=== PATIENT | female | born 1960 | race Caucasian/White ===

== ENCOUNTER → 2017-04-03 | Outpatient (CLI) | payer BC ==
[2017-04-03 17:50] LABS: Blood Urea Nitrogen 20 mg/dL (7-17); Non-African American GFR(MDRD) >60 (>60 ml/min/1.73 sqM)
--- NOTE | 2017-04-03 19:19 | CT ---
EXAMINATION TYPE: CT abdomen pelvis w con DATE OF EXAM: 04/03/2017 COMPARISON: NONE HISTORY: Pelvic pain for [address] DLP: 1469.5 mGycm Automated exposure control for dose reduction was used. TECHNIQUE: Helical acquisition of images was performed from the lung bases through the pelvis. CONTRAST: Performed with Oral Contrast and with IV Contrast, patient injected with 100 mL of Omnipaque 300. FINDINGS: Lung bases are clear. There is no pleural effusion. Heart size is normal. The liver spleen pancreas appear normal. Bile ducts are not dilated. There are clips from cholecystec fabricio. There is no adrenal mass. Kidneys show satisfactory contrast opacification. There is no hydronephrosi s. There is no retroperitoneal adenopathy. Abdominal aorta is atheromatous. There are sigmoid diverti cula. There is no evidence of diverticulitis. I see no intestinal wall thickening. There are no dilat ed loops. Appendix is not seen. There is mild athetoid calcification in the abdominal aorta. I see no focal bone destruction. There is narrowing at L4-5 and L5-S1 disc spaces with vacuum disc and spur f ormation. There is no evidence of focal bone destruction. Bladder distends smoothly. There is no sign of a pelvic mass. There is no sign of a hernia. IMPRESSION: MILD SIGMOID DIVERTICULOSIS. NO SIGN OF ACUTE ABDOMEN AND PELVIS.
== END | disposition home or self-care (01) ==
LOC: RADCTMAIN 17:17
PROVIDERS: ATTEND Internal Medicine
DX: K57.30 Diverticulosis of large intestine without perforation or abscess without bleeding (principal)
CPT/HCPCS: 82565; 84520; 74177; 36415; Q9967

== ENCOUNTER → 2017-09-01 | Outpatient (CLI) | payer BC ==
--- NOTE | 2017-09-02 09:45 | MM ---
Reason for exam: screening (asymptomatic). Last mammogram was performed 1 year and 2 months ago. History: Patient is postmenopausal. Family history of breast cancer in maternal aunt at age 70. Benign US biopsy breast VAD LT of the left breast, June 27, 2015. Benign left mammotome panel of the left breast, April 25, 2011. Physical Findings: A clinical breast exam by your physician is recommended on an annual basis and results should be correlated with mammographic findings. MG Screening Mammo w CAD Bilateral CC and MLO view(s) were taken. Prior study comparison: June 27, 2016, bilateral MG screening mammo w CAD. May 25, 2015, bilateral MG screening mammo w CAD. There are scattered fibroglandular densities. Finding: There is a 8 mm equal density (isodense), obscured mass in the upper outer quadrant of the left breast. Benign calcifications. Previous mammotome biopsy in the left breast. There is a chronic nodularity bilaterally. ASSESSMENT: Incomplete: need additional imaging evaluation, BI-RAD 0 RECOMMENDATION: Special view mammogram of the left breast. If lesion persists on supplemental views, image directed ultrasound is recommended. [facility] will attempt to contact patient to return for supplemental views and ultrasound if indicated.
== END | disposition home or self-care (01) ==
LOC: RADMAMWWP 13:09
PROVIDERS: ATTEND Internal Medicine
DX: Z12.31 Encounter for screening mammogram for malignant neoplasm of breast (principal); R92.8 Other abnormal and inconclusive findings on diagnostic imaging of breast
CPT/HCPCS: 77067

== ENCOUNTER → 2017-09-03 | Outpatient (CLI) | payer BC ==
--- NOTE | 2017-09-04 07:00 | MM ---
Reason for exam: additional evaluation requested from abnormal screening. Last mammogram was performed less than 1 month ago. History: Patient is postmenopausal. Family history of breast cancer in maternal aunt at age 70. Benign US biopsy breast VAD LT of the left breast, June 27, 2015. Benign left mammotome panel of the left breast, April 25, 2011. Physical Findings: Nurse did not find any significant physical abnormalities on exam. MG Work Up Mamm w CAD LT Spot compression CC, spot compression MLO, and ML view(s) were taken of the left breast. Prior study comparison: September 01, 2017, bilateral MG screening mammo w CAD. June 27, 2016, bilateral MG screening mammo w CAD. Density is improved however ultrasound is recommended 7.3cm from nipple. These results were verbally communicated with the patient and result sheet given to the patient on 09/03/17. ASSESSMENT: Incomplete: need additional imaging evaluation, BI-RAD 0 RECOMMENDATION: Ultrasound of the left breast.
--- NOTE | 2017-09-04 07:01 | USB ---
Reason for exam: additional evaluation requested from abnormal screening. History: Patient is postmenopausal. Family history of breast cancer in maternal aunt at age 70. Benign US biopsy breast VAD LT of the left breast, June 27, 2015. Benign left mammotome panel of the left breast, April 25, 2011. US Breast Workup Limited LT Left breast ultrasound demonstrates a 0.5 x 0.2 x 0.6cm lesion at 1 o'clock. These results were verbally communicated with the patient and result sheet given to the patient on 09/03/17. ASSESSMENT: Probably benign, BI-RAD 3 RECOMMENDATION: Follow-up diagnostic mammogram and ultrasound of the left breast in 6 months.
== END | disposition home or self-care (01) ==
LOC: RADMAMWWP 14:51
PROVIDERS: ATTEND Internal Medicine
DX: R92.8 Other abnormal and inconclusive findings on diagnostic imaging of breast (principal)
CPT/HCPCS: 77065

== ENCOUNTER → 2018-03-25 | Outpatient (CLI) | payer BC ==
--- NOTE | 2018-03-25 13:59 | MM ---
Reason for exam: additional evaluation requested from prior study. Last mammogram was performed 7 months ago. History: Patient is postmenopausal. Family history of breast cancer in maternal aunt at age 70. Benign US biopsy breast VAD LT of the left breast, June 27, 2015. Benign left mammotome panel of the left breast, April 25, 2011. Physical Findings: Nurse did not find any significant physical abnormalities on exam. MG 3D Diag Mammo W/Cad LT CC and MLO view(s) were taken of the left breast. Prior study comparison: September 03, 2017, left breast MG work up mamm w CAD LT. September 01, 2017, bilateral MG screening mammo w CAD. Finding: There is a 5 mm equal density (isodense), circumscribed round mass located 5 cm from the nipple in the 12 o'clock middle position of the left breast consistent with probable cyst on ultrasound at 1 o'clock. Previous mammotome biopsy in the left breast. There is no discrete abnormality at 3 o'clock dimpling. New finding since September 03, 2017 and September 01, 2017. These results were verbally communicated with the patient and result sheet given to the patient on 03/25/18. ASSESSMENT: Probably benign, BI-RAD 3 RECOMMENDATION: Follow-up diagnostic mammogram of both breasts in 6 months. Ultrasound of the left breast in 6 months. Manage on a clinical basis with regard to physical findings.
--- NOTE | 2018-03-25 14:01 | USB ---
Reason for exam: follow-up at short interval from prior study. History: Patient is postmenopausal. Family history of breast cancer in maternal aunt at age 70. Benign US biopsy breast VAD LT of the left breast, June 27, 2015. Benign left mammotome panel of the left breast, April 25, 2011. US Breast LT Left complete breast ultrasound includes all four quadrants, the retroareolar region and axilla. Finding demonstrates a 0.4 x 0.2 x 0.3cm lesion too small to characterize at 1 o'clock, a 0.6 x 0.7 x 0.3cm mixed lesion at 5 o'clock and an axilla node. These results were verbally communicated with the patient and result sheet given to the patient on 03/25/18. ASSESSMENT: Probably benign, BI-RAD 3 RECOMMENDATION: Follow-up diagnostic mammogram of both breasts in 6 months. Ultrasound of the left breast in 6 months.
== END | disposition home or self-care (01) ==
LOC: RADMAMWWP 09:00
PROVIDERS: ATTEND Internal Medicine
DX: R92.8 Other abnormal and inconclusive findings on diagnostic imaging of breast (principal)
CPT/HCPCS: 77061; 77065

== ENCOUNTER 2020-06-21 18:29 | Inpatient (IN) | payer BC ==
[2020-06-21] MEDS ORDERED: MORPHINE SULFATE 4 MG/ML SYRINGE IVP STA (18:38)
[2020-06-21] MEDS ORDERED: HEPARIN SODIUM,PORCINE 5,000 UNIT/ML 1 ML VIAL IV STA (18:38)
[2020-06-21] MEDS ORDERED: ATORVASTATIN 80 MG TAB PO STA (18:38)
[2020-06-21 18:40] LABS: Glucose,Whole Blood 145 mg/dL (75-99)
[2020-06-21] MEDS ORDERED: NALOXONE 0.4 MG/ML 1 ML VIAL IV PRN (18:40)
--- NOTE | 2020-06-21 18:46 | ED ---
General Adult HPI - General Chief complaint: Chest Pain Stated complaint: STEMI Time Seen by Provider: 06/21/20 18:36 Source: patient, EMS, RN notes reviewed, old records reviewed Mode of arrival: EMS Limitations: no limitations - History of Present Illness Initial comments: 59-year-old female with COPD presenting for evaluation of central chest pain, d escribed as a tightness and heaviness. She was seen at an outside hospital and diagnosed with a non-ST segment elevated MO. She was discharged today. She developed substernal chest pain approximately 30 minutes prior to arrival. She was transported as a priority one ST segment elevated MO by EMS. She had previous heart cath in 2016 with stenting of the right coronary artery. - Related Data Home Medications Medication Instructions Recorded Confirmed Atorvastatin [Lipitor] 40 mg PO HS@2100 11/03/15 11/05/15 Cholecalciferol [Vitamin D3 (25 1,000 unit PO DAILY@0800 11/03/15 11/05/15 Mcg = 1000 Iu)] Pantoprazole [Protonix] 40 mg PO QAM 11/03/15 11/04/15 Venlafaxine HCl ER [Effexor XR] 75 mg PO HS 11/03/15 11/04/15 gemfibroziL [Lopid] 600 mg PO BID@0800,2100 11/03/15 11/05/15 Previous Rx's Medication Instructions Recorded Aspirin EC [Ecotrin] 325 mg PO DAILY #30 tablet. 11/06/15 Cefuroxime Axetil [Ceftin] 500 mg PO BID #10 tablet 11/06/15 Metoprolol Tartrate [Lopressor] 25 mg PO BID #60 tab 11/06/15 Multivitamins, Thera [Multivitamin 1 each PO DAILY@1200 tab 11/06/15 (formulary)] Nitroglycerin Sl Tabs [Nitrostat] 0.4 mg SUBLINGUAL Q5M PRN #25 tab 11/06/15 Prasugrel [Effient] 10 mg PO DAILY #30 tab 11/06/15 Valsartan [Diovan] 80 mg PO DAILY #30 tab 11/06/15 Allergies Allergy/AdvReac Type Severity Reaction Status Date / Time venom-honey bee Allergy Swelling Verified 11/05/15 07:38 adhesive AdvReac Rash/Hives Verified 11/05/15 07:38 Review of Systems ROS Statement: Those systems with pertinent positive or pertinent negative responses have been documented in the HPI. ROS Other: All systems not noted in ROS Statement are negative. Past Medical History Past Medical History: GERD/Reflux, Hyperlipidemia, Hypertension History of Any Multi-Drug Resistant Organisms: None Reported Past Surgical History: Adenoidectomy, Appendectomy, Cholecystectomy, Hysterectomy, Orthopedic Surgery, Tonsillectomy Additional Past Surgical History / Comment(s): RIGHT SHOULDER BONE SPUR REMOVED Past Anesthesia/Blood Transfusion Reactions: No Reported Reaction Past Psychological History: No Psychological Hx Reported Past Alcohol Use History: None Reported Past Drug Use History: None Reported - Past Family History Father Family Medical History: AICD/Pacemaker Additional Family Medical History / Comment(s): 4 WAY BYPASS AT AGE 48 Brother(s) Additional Family Medical History / Comment(s): STENT PLACED AT AGE 53 General Exam Limitations: no limitations General appearance: alert, in no apparent distress Head exam: Present: atraumatic, normocephalic Eye exam: Present: normal appearance, PERRL ENT exam: Present: normal exam Neck exam: Present: normal inspection. Absent: tenderness, meningismus Respiratory exam: Present: normal lung sounds bilaterally. Absent: respiratory distress, wheezes Cardiovascular Exam: Present: regular rate, normal rhythm GI/Abdominal exam: Present: soft. Absent: distended, tenderness, guarding Extremities exam: Present: normal inspection, normal capillary refill. Absent: pedal edema Neurological exam: Present: alert, oriented X3 Psychiatric exam: Present: normal affect, normal mood Skin exam: Present: warm, pallor. Absent: cyanosis, diaphoretic Course Vital Signs 06/21/20 18:31 Temperature 98.4 F Pulse Rate 71 Respiratory 18 Rate Blood Pressure 159/96 O2 Sat by Pulse 100 Oximetry - Reevaluation(s) Reevaluation #1: 06/21/20 18:45 Case discussed with cardiology, Dr. Park, and Dr. Arvizu has been paged for intervention. EKG Findings - EKG Comments: EKG Findings:: EKG: Normal sinus rhythm, ST segment elevation in V2, V3, rate of 68, AL interval 148, QRS duration 84, QTC 427, ST segment depression in lead 3. Medical Decision Making - Medical Decision Making 59-year-old female with central chest pain. EKG showing ST segment elevation in V2 and V3 with reciprocal change in lead 3. STEMI code was activated in the emergency department. I discussed case with cardiology. Patient had been given aspirin, nitroglycerin, heparin and Lipitor as well as 4 mg of morphine. She will be taken for heart catheterization. - Lab Data Lab Results 06/21/20 Range/Units 18:39 POC Glucose (mg/dL) 145 H (75-99) mg/dL POC Glu Press Setup Operator ID Zully Jerome Critical Care Time Critical Care Time: Yes Total Critical Care Time: 35 Disposition Clinical Impression: ST elevation myocardial infarction (STEMI) Disposition: ADMITTED IP TO THIS HOSP Condition: Serious Is patient prescribed a controlled substance at d/c from ED?: No Referrals: Jodie Meng MD [Primary Care Provider] - 1-2 days Decision to Admit Reason: Admit from EC Decision Date: 06/21/20 Decision Time: 18:42
--- NOTE | 2020-06-21 18:56 | XR ---
EXAMINATION TYPE: XR chest 1V portable DATE OF EXAM: 06/21/2020 COMPARISON: 11/04/2015 HISTORY: Chest pain Heart and mediastinum are normal. Lungs are clear. Diaphragm is normal. Bony thorax appears normal. There are chest leads. IMPRESSION: Normal chest. No adverse change.
[2020-06-21 18:57] LABS: Basophils % (A) 0 %; Eosinophils # (A) 0.2 k/uL (0-0.7); Eosinophils % (A) 3 %; HCT 41.3 % (34.0-46.0); HGB 14.4 gm/dL (11.4-16.0); Lymphocytes # (A) 2.5 k/uL (1.0-4.8); Lymphocytes % (A) 30 %; MCH 30.9 pg (25.0-35.0); MCHC 34.8 g/dL (31.0-37.0); MCV 88.7 fL (80.0-100.0); Mean Platelet Volume 6.9; Monocytes # (A) 0.4 k/uL (0-1.0); Monocytes % (A) 5 %; Neutrophils % (A) 60 %; Platelet Count 319 k/uL (150-450); RBC 4.65 m/uL (3.80-5.40); RDW 13.1 % (11.5-15.5); WBC 8.4 k/uL (3.8-10.6)
[2020-06-21] MEDS ORDERED: LIDOCAINE 1% INJ 10MG/ML (20 ML MDV) ONE (19:04)
[2020-06-21] MEDS ORDERED: fentaNYL (PF) 50 MCG/ML 2 ML AMP ONE (19:06)
[2020-06-21 19:08] LABS: INR 1.1 (<1.2); Partial Thromboplastin Time 22.3 sec (22.0-30.0); Prothrombin Time 11.1 sec (9.0-12.0)
[2020-06-21] MEDS ORDERED: IV FLUID CONTINUATION 1,000 ML IV ONE (19:13)
[2020-06-21] MEDS ORDERED: VERAPAMIL 2.5 MG/ML 2 ML AMP ONE (19:15)
[2020-06-21 19:17] LABS: ALT 36 U/L (4-34); AST 32 U/L (14-36); African American GFR (CKD) >90 (>60 ml/min/1.73 sqM); Albumin 4.8 g/dL (3.5-5.0); Alkaline Phosphatase 67 U/L (38-126); Anion Gap 10 mmol/L; Blood Urea Nitrogen 18 mg/dL (7-17); Calcium 10.2 mg/dL (8.4-10.2); Carbon Dioxide 25 mmol/L (22-30); Chloride 102 mmol/L (98-107); Glucose 154 mg/dL (74-99); Non-African American GFR(CKD) 86 (>60 ml/min/1.73 sqM); Potassium 4.2 mmol/L (3.5-5.1); Sodium 137 mmol/L (137-145); Total Bilirubin 0.5 mg/dL (0.2-1.3); Total Protein 7.5 g/dL (6.3-8.2)
[2020-06-21] MEDS ORDERED: LIDOCAINE 1% INJ 10MG/ML (20 ML MDV) SQ ONE (19:21)
[2020-06-21] MEDS ORDERED: MIDAZOLAM 2 MG/2 ML VIAL IVP ONE (19:21)
[2020-06-21] MEDS: fentaNYL (PF) 50 MCG/ML 2 ML AMP IVP ONE ×2 (19:21→19:25)
[2020-06-21] MEDS ORDERED: BIVALIRUDIN BOLUS 250 MG/50 ML IV ONE (19:34)
[2020-06-21] MEDS ORDERED: IOPAMIDOL-370 125ML BTL INJ ONE (19:34)
[2020-06-21] MEDS ORDERED: BIVALIRUDIN 250 MG in SODIUM CHLORIDE 0.9% 50 ML IV ONE (19:35)
[2020-06-21] MEDS: NITROGLYCERIN 1000MCG/10ML SYRINGE INTRACORON ONE ×2 (19:43→19:50)
[2020-06-21] MEDS ORDERED: PRASUGREL 10 MG TAB ONE (19:47)
[2020-06-21] MEDS ORDERED: PRASUGREL 10 MG TAB PO ONE (19:50)
[2020-06-21] MEDS ORDERED: IOPAMIDOL-370 100ML BTL INJ ONE (20:00)
[2020-06-21] MEDS ORDERED: NITROGLYCERIN SL TABS 0.4 MG TAB SUBLINGUAL PRN ×2 (20:04→20:09)
[2020-06-21] MEDS ORDERED: ZOLPIDEM 5 MG TAB PO PRN (20:09)
[2020-06-21] MEDS ORDERED: MAG HYDROX/AL HYDROX/SIMETH 30 ML CUP PO PRN (20:09)
[2020-06-21] MEDS ORDERED: RX INFO: IV CONTRAST WAS GIVEN 1 EACH MISC MISCELLANE PRN (20:09)
[2020-06-21] MEDS ORDERED: ATROPINE SULFATE 0.1 MG/ML 10ML SYRINGE IV PRN (20:09)
[2020-06-21] MEDS ORDERED: NON FORMULARY DRUG (Semaglutide [Ozempic] 1 MG/0.75 ML Pen.Injctr) SQ SCH (20:15)
[2020-06-21] MEDS ORDERED: SODIUM CHLORIDE 0.9% 1,000 ML IV SCH (20:15)
[2020-06-21 20:59] LABS: Glucose,Whole Blood 143 mg/dL (75-99)
--- NOTE | 2020-06-21 21:22 | P.CRDCN ---
History of Present Illness History of present illness: This is Dr. Park dictating an H/P on this patient The patient was interviewed and examined IMPRESSION / ASSESSMENT: Acute anterior wall MO ST elevation Pain started around 5:30 this evening She was just discharged from [facility] where she been admitted for evaluation of chest pain. She is COVID positive Past history of coronary artery disease status post stenting Type 2 diabetes PLAN: Proceed with urgent coronary angiography. I discussed this with Dr. Arvizu and e ER physician HPI Patient came to the ER complaining of chest discomfort and not in the upper back Started around 5:30 this evening. Twelve-lead ECG showed sinus rhythm normal KS and ST segment elevation in the precordial leads consistent with an anterior wall MO She denied any shortness of breath or dizziness ROS: No fever chills or rigors, no cough, phlegm or expectoration, no nausea, vomiting or diarrhea, no hematuria, dysuria, no musculoskeletal complaints, no strokes or seizures, no skin lesions. EXAMINATION: Afebrile 98.4F pulse rate in 70s Blood pressure 159/96. His mercury Heart sounds. Soft no murmurs or gallops Breath sounds but reduced bilaterally no rhonchi no crackles REVIEW OF LABS, ECG & MEDICAL DATA WHITE count 8.4, hemoglobin 14.4 Troponin 0.043 Normal potassium BUN/creatinine were normal Past Medical History Past Medical History: GERD/Reflux, Hyperlipidemia, Hypertension Additional Past Medical History / Comment(s): Type 2DM, MO in 2016 and 2019 History of Any Multi-Drug Resistant Organisms: None Reported Past Surgical History: Adenoidectomy, Appendectomy, Cholecystectomy, Hysterectomy, Orthopedic Surgery, Tonsillectomy Additional Past Surgical History / Comment(s): RIGHT SHOULDER BONE SPUR REMOVED Past Anesthesia/Blood Transfusion Reactions: No Reported Reaction Past Psychological History: No Psychological Hx Reported Past Alcohol Use History: None Reported Past Drug Use History: None Reported - Past Family History Father Family Medical History: AICD/Pacemaker Additional Family Medical History / Comment(s): 4 WAY BYPASS AT AGE 48 Brother(s) Additional Family Medical History / Comment(s): STENT PLACED AT AGE 53 Medications and Allergies Home Medications Medication Instructions Recorded Confirmed Type Atorvastatin [Lipitor] 40 mg PO HS 11/03/15 06/21/20 History gemfibroziL [Lopid] 600 mg PO BID 11/03/15 06/21/20 History Metoprolol Tartrate [Lopressor] 25 mg PO BID #60 tab 11/06/15 06/21/20 Rx Nitroglycerin Sl Tabs [Nitrostat] 0.4 mg SUBLINGUAL Q5M PRN #25 tab 11/06/15 06/21/20 Rx Aspirin 81 mg PO DAILY 06/21/20 06/21/20 History Isosorbide Mononitrate ER [Imdur] 30 mg PO DAILY 06/21/20 06/21/20 History Losartan [Cozaar] 50 mg PO DAILY 06/21/20 06/21/20 History Semaglutide [Ozempic] 1 mg SQ Q7D 06/21/20 06/21/20 History Venlafaxine HCl ER [Effexor XR] 150 mg PO HS 06/21/20 06/21/20 History metFORMIN HCL 1,000 mg PO BID 06/21/20 06/21/20 History Allergies Allergy/AdvReac Type Severity Reaction Status Date / Time venom-honey bee Allergy Swelling Verified 06/21/20 19:15 adhesive AdvReac Rash/Hives Verified 06/21/20 19:15 Physical Exam Vitals: Vital Signs Temp Pulse Resp BP Pulse Ox 06/21/20 18:31 98.4 F 71 18 159/96 100 Intake and Output 06/21/20 06/21/20 06/21/20 06:59 14:59 22:59 Intake Total 215 Balance 215 Intake: IV 215 Other: Weight 82.1 kg Results 06/21/20 18:37 06/21/20 18:37 Cardiac Enzymes 06/21/20 06/21/20 Range/Units 18:37 18:37 AST 32 (14-36) U/L Troponin I 0.043 H* (0.000-0.034) ng/mL Coagulation 06/21/20 Range/Units 18:37 PT 11.1 (9.0-12.0) sec APTT 22.3 (22.0-30.0) sec CBC 06/21/20 Range/Units 18:37 WBC 8.4 (3.8-10.6) k/uL RBC 4.65 (3.80-5.40) m/uL Hgb 14.4 (11.4-16.0) gm/dL Hct 41.3 (34.0-46.0) % Plt Count 319 (150-450) k/uL Comprehensive Metabolic Panel 06/21/20 Range/Units 18:37 Sodium 137 (137-145) mmol/L Potassium 4.2 (3.5-5.1) mmol/L Chloride 102 (98-107) mmol/L Carbon Dioxide 25 (22-30) mmol/L BUN 18 H (7-17) mg/dL Creatinine 0.77 (0.52-1.04) mg/dL Glucose 154 H (74-99) mg/dL Calcium 10.2 (8.4-10.2) mg/dL AST 32 (14-36) U/L ALT 36 H (4-34) U/L Alkaline Phosphatase 67 (38-126) U/L Total Protein 7.5 (6.3-8.2) g/dL Albumin 4.8 (3.5-5.0) g/dL Current Medications Generic Name Dose Route Start Last Admin Trade Name Freq PRN Reason Stop Dose Admin Al Hydroxide/Mg Hydroxide 30 ml 06/21/20 20:09 Mag Hydrox/Al Hydrox/Simeth 30 Ml Cup PO Q4HR PRN Heartburn Aspirin 81 mg 06/22/20 09:00 Aspirin 81 Mg PO DAILY TERRY Atorvastatin Calcium 80 mg 06/21/20 21:00 Atorvastatin 80 Mg Tab PO HS TERRY Atropine Sulfate 0.5 mg 06/21/20 20:09 Atropine Sulfate 0.1 Mg/Ml 10ml Syringe IV ONCE PRN Symptomatic Bradycardia Fenofibrate 160 mg 06/22/20 09:00 Fenofibrate 160 Mg Tab PO DAILY TERRY Sodium Chloride 1,000 mls @ 75 mls/hr 06/21/20 20:15 Saline 0.9% IV 06/22/20 02:16 .[id number] TERRY Isosorbide Mononitrate 30 mg 06/22/20 09:00 Isosorbide Mononitrate Er 30 Mg Tab.Er.24h PO DAILY TERRY Losartan Potassium 50 mg 06/22/20 09:00 Losartan 50 Mg Tab PO DAILY TERRY Metoprolol Tartrate 25 mg 06/21/20 21:00 Metoprolol Tartrate 25 Mg Tab PO BID TERRY Miscellaneous Information 1 each 06/21/20 20:09 Rx Info: Iv Contrast Was Given 1 Each Misc MISCELLANE 06/23/20 20:09 DAILY PRN Per Protocol Naloxone HCl 0.2 mg 06/21/20 18:40 Naloxone 0.4 Mg/Ml 1 Ml Vial IV Q2M PRN Opioid Reversal Nitroglycerin 0.4 mg 06/21/20 20:04 Nitroglycerin Sl Tabs 0.4 Mg Tab SUBLINGUAL Q5M PRN Chest Pain Nitroglycerin 0.4 mg 06/21/20 20:09 Nitroglycerin Sl Tabs 0.4 Mg Tab SUBLINGUAL Q5M PRN Chest Pain Non-Formulary Medication 1 mg 06/21/20 20:15 Semaglutide [Ozempic] SQ Q7D TERRY Prasugrel 10 mg 06/22/20 12:00 Prasugrel 10 Mg Tab PO DAILY TERRY Venlafaxine HCl 150 mg 06/21/20 21:00 Venlafaxine Hcl Er 150 Mg Cap PO HS TERRY Zolpidem Tartrate 5 mg 06/21/20 20:09 Zolpidem 5 Mg Tab PO HS PRN Insomnia Intake and Output 06/21/20 06/21/20 06/21/20 06:59 14:59 22:59 Intake Total 215 Balance 215 Intake: IV 215 Other: Weight 82.1 kg Patient Weight 06/22/20 06:59 Weight 82.1 kg 06/21/20 18:37 06/21/20 18:37
[2020-06-21] MEDS: ATORVASTATIN 80 MG TAB PO SCH (21:35)
[2020-06-21] MEDS: METOPROLOL TARTRATE 25 MG TAB PO SCH (21:36)
[2020-06-21] MEDS: VENLAFAXINE HCL ER 150 MG CAP PO SCH (21:36)
--- NOTE | 2020-06-22 01:13 | LTR ---
June 21, 2020. Re: Jany Vasquez Dear Dr. Meng: Ms. Jany Vasquez presented to [facility] with chest discomfort and was diagnosed with acute anterior ST-elevation myocardial infarction. An emergent heart catheterization was performed and that showed acute total occlusion of the left anterior descending artery which was opened and stented, with good angiographic results. Thank you for allowing me to participate in her care and please do not hesitate to call if you have any question or concern. Sincerely, Donny Arvizu MD MMMARLENA / MIGUELINAN: [id number] /
--- NOTE | 2020-06-22 01:13 | CC ---
CARDIAC CATHETERIZATION REPORT CARDIAC CATHETERIZATION AND PERCUTANEOUS CORONARY INTERVENTION: DATE OF SERVICE: June 21, 2020 PERFORMING PHYSICIAN: Donny Arvizu MD. PROCEDURE PERFORMED: 1. Selective right and left coronary angiogram. 2. Left heart catheterization. 3. Successful stenting of the mid left anterior descending artery using 3.0 x 28 mm Xience drug-eluting stent with an excellent angiographic result and reduction of stenosis from 100% to 0%. 4. Selective right common femoral artery angiogram. INDICATION: This is a 59-year-old female patient who sees Dr. Harman in the office as an outpatient with known history of coronary artery disease and prior stenting of the right coronary artery was performed by Dr. Deniz Salazar in 2016, presented to the hospital with chest discomfort and EKG concerning for acute anterior ST-elevation myocardial infarction. She was seen by Dr. Park who recommended an emergent heart catheterization. APPROACH: Right common femoral artery. COMPLICATION: None. LEVEL OF SEDATION: Moderate with sedation length of 43 minutes. Door to balloon was 77 minutes. PROCEDURE DESCRIPTION: After obtaining an informed consent, the patient was brought to the cardiac stores laborer. The right common femoral artery was cannulated using micropuncture technique, the micropuncture wire passed easily then I placed a 6-Georgian sheath at the right common femoral artery. Selective right and left coronary angiogram performed using JR4 diagnostic catheter for the right coronary artery and JL4 guiding catheter for the left coronary system. Subsequently, I intervene on the LAD. Please see a separate paragraph for that. After that, I did left heart catheterization as well. The procedure was completed without any complication. SELECTIVE CORONARY ANGIOGRAM: 1. Right coronary artery is a large caliber vessel and is a dominant vessel. The RCA in the proximal portion appeared to be angiographically normal. The mid RCA is stented with intermediate in-stent restenosis. The RCA distally appeared to have mild disease only and bifurcates into PDA and PLV branches both appeared to be angiographically normal. 2. The left main is a large caliber vessel and seems to be angiographically normal. The left main bifurcates into LCX and LAD. 3. The left circumflex is a large caliber vessel. It is a nondominant vessel. The proximal left circumflex has intermediate lesion on the turn appeared to be in the range of 50% to 60%. The proximal and mid left circumflex has mild disease only and gives rise into a large OM branch which appeared to be angiographically normal. The circumflex distally appeared to be normal. 4. The LAD, the proximal LAD has mild disease only. The mid LAD before 100% occluded lesion appeared to have another lesion proximal to that in the range of 70% to 80%. HEMODYNAMICS: The LVEDP was 20 mmHg without significant gradient across the aortic valve. CONCLUSION: 1. Acute anterior ST-elevation myocardial infarction in this 59-year-old female patient with prior stenting of the right coronary artery as well as diabetes and hypertension and dyslipidemia. 2. Acute total occlusion of the mid left anterior descending artery. I did perform successful stenting of the mid left anterior descending artery. 3. Intermediate disease involving the right coronary artery and left circumflex coronary artery. 4. Normal left main coronary artery. 5. Elevated left ventricular end-diastolic pressure. POSTPROCEDURE MANAGEMENT: 1. Dual antiplatelet therapy. 2. Aggressive cholesterol control. I am increasing the dose of Lipitor to 80 mg daily. 3. An echocardiogram with Doppler. 4. Follow up with the patient. MMODL / IJN: [id number] /
[2020-06-22 04:10] LABS: Basophils % (A) 0 %; Eosinophils # (A) 0.2 k/uL (0-0.7); Eosinophils % (A) 2 %; HCT 40.8 % (34.0-46.0); Lymphocytes % (A) 24 %; MCH 30.4 pg (25.0-35.0); MCHC 34.3 g/dL (31.0-37.0); MCV 88.8 fL (80.0-100.0); Mean Platelet Volume 6.8; Monocytes # (A) 0.4 k/uL (0-1.0); Monocytes % (A) 5 %; Neutrophils # (A) 5.6 k/uL (1.3-7.7); Neutrophils % (A) 67 %; Platelet Count 280 k/uL (150-450); RBC 4.59 m/uL (3.80-5.40); RDW 13.2 % (11.5-15.5); WBC 8.4 k/uL (3.8-10.6)
[2020-06-22 04:19] LABS: African American GFR (CKD) >90 (>60 ml/min/1.73 sqM); Anion Gap 9 mmol/L; Blood Urea Nitrogen 14 mg/dL (7-17); Carbon Dioxide 25 mmol/L (22-30); Chloride 103 mmol/L (98-107); Glucose 144 mg/dL (74-99); Non-African American GFR(CKD) >90 (>60 ml/min/1.73 sqM); Potassium 4.1 mmol/L (3.5-5.1); Sodium 137 mmol/L (137-145)
[2020-06-22] MEDS: ACETAMINOPHEN TAB 325 MG TAB PO PRN ×2 (05:41→10:23)
[2020-06-22 07:17] LABS: Glucose,Whole Blood 130 mg/dL (75-99)
[2020-06-22] MEDS: ISOSORBIDE MONONITRATE ER 30 MG TAB.ER.24H PO SCH (08:29)
[2020-06-22] MEDS: METOPROLOL TARTRATE 25 MG TAB PO SCH ×2 (08:29→21:35)
[2020-06-22] MEDS: FENOFIBRATE 160 MG TAB PO SCH (08:29)
[2020-06-22] MEDS: LOSARTAN 50 MG TAB PO SCH (08:29)
[2020-06-22] MEDS: ASPIRIN 81 MG PO SCH (08:30)
[2020-06-22 10:24] LABS: Hemoglobin A1C 6.5 % (4.0-6.0)
--- NOTE | 2020-06-22 10:32 | P.PN ---
Subjective Progress Note Date: 06/22/20 This is a pleasant 59-year-old female with documented history of coronary artery disease with prior PCI, diabetes, hypertension, hyperlipidemia, who presented to the hospital with an acute anterior wall ST elevation myocardial infarction, she underwent angioplasty and stenting of the LAD. The patient apparently had gone to [facility] on Thursday with symptoms of chest discomfort, she was discharged home. Patient is coated positive. Patient was seen and examined in the intensive care unit this morning, denies any chest discomfort, breathing is overall stable. Her echocardiogram with Doppler study was performed this morning but is yet pending. Objective - Vital Signs Vital signs: Vital Signs Temp 98.1 F 06/22/20 08:00 Pulse 72 06/22/20 09:00 Resp 15 06/22/20 09:00 BP 132/77 06/22/20 09:00 Pulse Ox 96 06/22/20 09:00 Intake & Output 06/21/20 06/22/20 06/22/20 18:59 06:59 18:59 Intake Total 915 Output Total 2000 300 Balance -1085 -300 Weight 82.1 kg 89.2 kg Intake: IV 665 Sodium Chloride 0.9% 1, 450 000 ml @ 75 mls/hr IV . [id number] TERRY Rx#:[id number] Oral 250 Output: Urine 2000 300 Other: # Voids 0 0 - Exam PHYSICAL EXAMINATION: GENERAL: 59-year-old female in no acute distress at the time of my examination HEENT: Head is atraumatic, normocephalic. Pupils equal, round. Sclera anicteric. Conjunctiva are clear. Mucous membranes of the mouth are moist. Neck is supple. There is no elevated jugular venous pressure. No carotid bruit is heard. HEART EXAMINATION: Heart S1, S2 normal. No murmur or gallop heard. CHEST EXAMINATION: Lungs are clear to auscultation and precussion. No chest wall tenderness is noted on palpation or with deep breathing. ABDOMEN: Soft, nontender. Bowel sounds are heard. No organomegaly noted. EXTREMITIES: 2+ peripheral pulses with no evidence of peripheral edema and no calf tenderness noted. Right groin is soft, no evidence of any hematoma. NEUROLOGIC patient is awake, alert and oriented 3 . - Labs CBC & Chem 7: 06/22/20 03:46 06/22/20 03:46 Labs: Abnormal Lab Results - Last 24 Hours (Table) 06/21/20 06/21/20 06/21/20 Range/Units 18:37 18:37 18:39 BUN 18 H (7-17) mg/dL Glucose 154 H (74-99) mg/dL POC Glucose (mg/dL) 145 H (75-99) mg/dL ALT 36 H (4-34) U/L Troponin I 0.043 H* (0.000-0.034) ng/mL 06/21/20 06/22/20 06/22/20 Range/Units 20:58 03:46 03:46 BUN (7-17) mg/dL Glucose 144 H (74-99) mg/dL POC Glucose (mg/dL) 143 H (75-99) mg/dL ALT (4-34) U/L Troponin I 20.400 H* (0.000-0.034) ng/mL 06/22/20 Range/Units 07:16 BUN (7-17) mg/dL Glucose (74-99) mg/dL POC Glucose (mg/dL) 130 H (75-99) mg/dL ALT (4-34) U/L Troponin I (0.000-0.034) ng/mL Assessment and Plan Plan: Assessment and plan #[address] elevation myocardial infarction, status post angioplasty and stenting of the LAD #2 diabetes #3 history of coronary artery disease with prior PCI #4 hyperlipidemia #5 hypertension #6 COVID Positive Plan From cardiology's perspective, we will review the echocardiogram with Doppler study. Continue dual antiplatelet therapy along with Lipitor, Imdur, losartan, metoprolol. Continue to monitor the patient for 8 hours. She may transfer to the cardiac unit today. DNP note has been reviewed, I agree with a documented findings and plan of care. Patient was seen and examined.
--- NOTE | 2020-06-22 10:59 | ECHOF ---
Referral Reason:STEMI MEASUREMENTS -------- HEIGHT: 154.9 cm WEIGHT: 88.9 kg BP: 137/82 RVIDd: 3.0 cm (< 3.3) IVSd: 1.2 cm (0.6 - 1.1) LVIDd: 3.7 cm (3.9 - 5.3) LVPWd: 1.1 cm (0.6 - 1.1) IVSs: 1.8 cm LVIDs: 2.3 cm LVPWs: 1.7 cm LA Diam: 3.4 cm (2.7 - 3.8) LAESV Index (A-L): 25.70 ml/m Ao Diam: 3.4 cm (2.0 - 3.7) AV Cusp: 2.2 cm (1.5 - 2.6) MV EXCURSION: 13.362 mm (> 18.000) MV EF SLOPE: 90 mm/s (70 - 150) EPSS: 0.3 cm MV E Leonard: 0.83 m/s MV DecT: 282 ms MV A Leonard: 1.37 m/s MV E/A Ratio: 0.60 FINDINGS -------- Sinus rhythm. This was a technically adequate study. The left ventricular size is normal. There is borderline concentric left ventricular hypertrophy. Overall left ventricular systolic function is mildly impaired with, an EF between 45 - 50 %. The d iastolic filling pattern indicates impaired relaxation 16.13. Mid anterior LV wall motion is hypoki netic. Mid anteroseptal LV wall motion is hypokinetic. Apical anterior LV wall motion is hypoki netic. Apical septum LV wall motion is hypokinetic. The right ventricle is normal in size. Normal LA size by volume 22+/-6 ml/m2. The right atrial size is normal. Interatrial and interventricular septum intact. The aortic valve is trileaflet, and appears structurally normal. No aortic stenosis or regurgitation. Mild mitral annular calcification present. There is trace to mild mitral regurgitation. The tricuspid valve appears structurally normal. There is no pulmonic regurgitation present. The aortic root size is normal. IVC Not well visulized. There is no pericardial effusion. CONCLUSIONS -------- 1. There is borderline concentric left ventricular hypertrophy. 2. Overall left ventricular systolic function is mildly impaired with, an EF between 45 - 50 %. 3. Mid anterior LV wall motion is hypokinetic. 4. Mid anteroseptal LV wall motion is hypokinetic. 5. Apical anterior LV wall motion is hypokinetic. 6. Apical septum LV wall motion is hypokinetic. 7. Normal LA size by volume 22+/-6 ml/m2. 8. The aortic valve is trileaflet, and appears structurally normal. No aortic stenosis or regurgitati on. 9. There is trace to mild mitral regurgitation. LAST TRIMMER: Yesi Alicia RDCS
[2020-06-22 11:10] VITALS: BMI 37.1
--- NOTE | 2020-06-22 11:14 | P.HPIM ---
History of Present Illness This is a pleasant 59 years old female with multiple medical problems as below, also She has previously stent in the RCA. Also she has recent covid 19 infection with no evidence of respiratory or GI symptoms or compromise. he was recently discharged from [facility] under my service yesterday where she was admitted for non-STEMI. Patient has been evaluated by her manager financial Dr. Harman. Patient was found stable by cardiology team for discharge and to schedule outpatient stress test/coronary angiography to rule out obstructive CAD. After cardiology clearance for discharge there was no other medical reason to keep the patient inhouse , However after discharge she went home and after 2 hours she developed chest pain. She describes the chest pain as central, sometimes radiating to the anterior neck associated with numbness in both hands, was about 10/10 in severity compared to 7/10 when she was at [facility] emergency room. Patient underwent emergent cardiac catheterization with PCI and stent placement in the left anterior descending artery with good angiographic results as per manager financial . patient currently resting comfortably in the ICU, with no chest pain or other symptoms, she is hemodynamically stable. Blood pressure 125/72, heart rate is 67, patient is afebrile and she is saturating 94-97% on room air. Labs show an unremarkable CBC and BMP, troponin were elevated at 0.04 and 20.4. Echocardiogram is ordered and is pending, as well as hemoglobin A1c Past Medical History Past Medical History: GERD/Reflux, Hyperlipidemia, Hypertension Additional Past Medical History / Comment(s): Type 2DM, [place] in 2016 and 2019 Last Myocardial Infarction Date:: 06/21/20 History of Any Multi-Drug Resistant Organisms: None Reported Past Surgical History: Adenoidectomy, Appendectomy, Cholecystectomy, Hysterectomy, Orthopedic Surgery, Tonsillectomy Additional Past Surgical History / Comment(s): RIGHT SHOULDER BONE SPUR REMOVED Past Anesthesia/Blood Transfusion Reactions: No Reported Reaction Past Psychological History: No Psychological Hx Reported Past Alcohol Use History: None Reported Past Drug Use History: None Reported - Past Family History Father Family Medical History: AICD/Pacemaker Additional Family Medical History / Comment(s): 4 WAY BYPASS AT AGE 48 Brother(s) Additional Family Medical History / Comment(s): STENT PLACED AT AGE 53 Medications and Allergies Home Medications Medication Instructions Recorded Confirmed Type Atorvastatin [Lipitor] 40 mg PO HS 11/03/15 06/21/20 History gemfibroziL [Lopid] 600 mg PO BID 11/03/15 06/21/20 History Metoprolol Tartrate [Lopressor] 25 mg PO BID #60 tab 11/06/15 06/21/20 Rx Nitroglycerin Sl Tabs [Nitrostat] 0.4 mg SUBLINGUAL Q5M PRN #25 tab 11/06/15 06/21/20 Rx Aspirin 81 mg PO DAILY 06/21/20 06/21/20 History Isosorbide Mononitrate ER [Imdur] 30 mg PO DAILY 06/21/20 06/21/20 History Losartan [Cozaar] 50 mg PO DAILY 06/21/20 06/21/20 History Semaglutide [Ozempic] 1 mg SQ TU 06/21/20 06/21/20 History Venlafaxine HCl ER [Effexor XR] 150 mg PO HS 06/21/20 06/21/20 History metFORMIN HCL 1,000 mg PO HS 06/21/20 06/21/20 History Allergies Allergy/AdvReac Type Severity Reaction Status Date / Time latex Allergy Mild Itching Verified 06/22/20 05:19 venom-honey bee Allergy Swelling Verified 06/21/20 19:15 adhesive AdvReac Rash/Hives Verified 06/21/20 19:15 Physical Exam Vitals: Vital Signs Temp Pulse Resp BP BP Pulse Ox 06/22/20 07:00 67 20 125/72 95 06/22/20 06:00 68 21 146/89 97 06/22/20 05:00 62 17 137/82 95 06/22/20 04:00 98.6 F 62 20 145/90 94 L 06/22/20 03:10 98.6 F 64 24 145/90 96 06/22/20 03:00 72 20 156/103 06/22/20 02:50 63 20 152/101 97 06/22/20 02:43 65 14 152/101 95 06/22/20 02:00 18 160/91 97 06/22/20 01:00 16 153/88 96 06/21/20 23:54 98.6 F 14 138/83 94 L 06/21/20 22:54 14 138/85 98 06/21/20 21:54 16 126/89 97 06/21/20 21:24 18 96 06/21/20 20:54 97.8 F 14 133/81 94 L 06/21/20 19:14 12 138/85 96 06/21/20 18:31 98.4 F 71 18 159/96 100 Intake and Output 06/21/20 06/22/20 06/22/20 22:59 06:59 14:59 Intake Total 365 550 Output Total 600 1400 Balance -235 -850 Intake: IV 365 300 Sodium Chloride 0.9% 1, 150 300 000 ml @ 75 mls/hr IV . [id number] TERRY Rx#:[id number] Oral 250 Output: Urine 600 1400 Other: # Voids 1 0 0 Weight 89.2 kg 89.2 kg Results CBC & Chem 7: 06/22/20 03:46 06/22/20 03:46 Labs: Abnormal Lab Results - Last 24 Hours (Table) 06/21/20 06/21/20 06/21/20 Range/Units 18:37 18:37 18:39 BUN 18 H (7-17) mg/dL Glucose 154 H (74-99) mg/dL POC Glucose (mg/dL) 145 H (75-99) mg/dL ALT 36 H (4-34) U/L Troponin I 0.043 H* (0.000-0.034) ng/mL 06/21/20 06/22/20 06/22/20 Range/Units 20:58 03:46 03:46 BUN (7-17) mg/dL Glucose 144 H (74-99) mg/dL POC Glucose (mg/dL) 143 H (75-99) mg/dL ALT (4-34) U/L Troponin I 20.400 H* (0.000-0.034) ng/mL 06/22/20 Range/Units 07:16 BUN (7-17) mg/dL Glucose (74-99) mg/dL POC Glucose (mg/dL) 130 H (75-99) mg/dL ALT (4-34) U/L Troponin I (0.000-0.034) ng/mL Thrombosis Risk Factor Assmnt - Choose All That Apply Each Factor Represents 1 point: Acute [place], Medical pt on bed rest, Obesity (BMI >25) Thrombosis Risk Factor Assessment Total Risk Factor Score: 3 Thrombosis Risk Factor Assessment Level: Moderate Risk Assessment and Plan Assessment: Acute STEMI status post PCI and stent placement of the LAD covid 19 viral infection, no respiratory or GI symptoms Asymptomatic bacteriuria type 2 diabetes mellitus Hypertriglyceridemia Hyperlipidemia Hypertension History of coronary artery disease Obesity Plan: This is a pleasant 59 years old female who presents with STEMI. Status post stent placement in the LAD. Continue with dual antiplatelet therapy. Currently she is on aspirin and effient, Continue with metoprolol, continue losartan per manager financial's recommendation. Cardiology on the case. Continue with vitamin C and zinc for her Coumadin infection, patient is not hypoxic with no GI symptoms. Continue to monitor glucose Labs and medication were reviewed.. Continue same treatment. Continue with symptomatic treatment. Resume home medication. Monitor lytes and vitals. DVT and GI prophylaxis. Further recommendationsas per clinical course of the patient DVT prophylaxis: Subcutaneous heparin GI Prophylaxis: Pepcid
[2020-06-22] MEDS: PRASUGREL 10 MG TAB PO SCH (12:33)
[2020-06-22 12:42] LABS: Glucose,Whole Blood 135 mg/dL (75-99)
[2020-06-22] MEDS: INSULIN ASPART (NovoLOG) 100 UNIT/ML VIAL SQ SCH ×3 (12:43→21:43)
[2020-06-22 17:03] LABS: Glucose,Whole Blood 133 mg/dL (75-99)
[2020-06-22 20:14] LABS: Glucose,Whole Blood 143 mg/dL (75-99)
[2020-06-22] MEDS: FAMOTIDINE 20 MG/2 ML VIAL IV SCH (21:34)
[2020-06-22] MEDS: HEPARIN SODIUM,PORCINE 5,000 UNIT/ML 1 ML VIAL SQ SCH (21:34)
[2020-06-22] MEDS: ATORVASTATIN 80 MG TAB PO SCH (21:34)
[2020-06-22] MEDS: VENLAFAXINE HCL ER 150 MG CAP PO SCH (21:43)
[2020-06-23] MEDS: INSULIN ASPART (NovoLOG) 100 UNIT/ML VIAL SQ SCH ×4 (07:05→20:52)
[2020-06-23 07:06] LABS: Glucose,Whole Blood 141 mg/dL (75-99)
[2020-06-23] MEDS: PRASUGREL 10 MG TAB PO SCH (08:21)
[2020-06-23] MEDS: ASCORBIC ACID 500 MG TAB PO SCH (08:21)
[2020-06-23] MEDS: ASPIRIN 81 MG PO SCH (08:21)
[2020-06-23] MEDS: METOPROLOL TARTRATE 25 MG TAB PO SCH ×2 (08:21→20:51)
[2020-06-23] MEDS: ZINC SULFATE 220 MG CAP PO SCH (08:21)
[2020-06-23] MEDS: FENOFIBRATE 160 MG TAB PO SCH (08:21)
[2020-06-23] MEDS: LOSARTAN 50 MG TAB PO SCH (08:22)
[2020-06-23] MEDS: HEPARIN SODIUM,PORCINE 5,000 UNIT/ML 1 ML VIAL SQ SCH ×2 (08:22→20:51)
[2020-06-23] MEDS: FAMOTIDINE 20 MG/2 ML VIAL IV SCH ×2 (08:22→20:51)
[2020-06-23] MEDS: ISOSORBIDE MONONITRATE ER 30 MG TAB.ER.24H PO SCH (08:22)
[2020-06-23 11:43] LABS: Glucose,Whole Blood 108 mg/dL (75-99)
--- NOTE | 2020-06-23 12:18 | P.PN ---
Subjective Progress Note Date: 06/23/20 The pleasant 59-year-old female patient who follows with Dr. Freeman in the office. She has a documented history of CAD with prior PCI, diabetes, hypertension, hyperlipidemia. She presented to the hospital with acute anterior wall ST elevation [place]. She underwent angioplasty and stenting of the LAD. Patient was recently at [facility] and had symptoms of chest discomfort but was discharged home. She was positive for COVID-19. Patient was seen and examined this morning. Resting comfortably in bed. She has no current complaints. Echocardiogram with Doppler study done yesterday showed mildly impaired LV systolic function with ejection fraction between 45 and 50%, evidence of segmental wall motion abnormalities, trace to mild MR. Vital signs are stable. Objective - Vital Signs Vital signs: Vital Signs Temp 98.6 F 06/23/20 08:05 Pulse 87 06/23/20 08:05 Resp 18 06/23/20 08:05 BP 129/63 06/23/20 08:05 Pulse Ox 97 06/23/20 08:05 Intake & Output 06/22/20 06/23/20 06/23/20 18:59 06:59 18:59 Intake Total 180 Output Total 1450 400 Balance -1450 -400 180 Weight 89.2 kg 81.9 kg Intake: Oral 180 Output: Urine 1450 400 Other: Voiding Method Toilet # Voids 0 1 1 - Exam PHYSICAL EXAMINATION: GENERAL: 59-year-old female in no acute distress at the time of my examination HEENT: Head is atraumatic, normocephalic. Pupils equal, round. Sclera anicteric. Conjunctiva are clear. Mucous membranes of the mouth are moist. Neck is supple. There is no elevated jugular venous pressure. No carotid bruit is heard. HEART EXAMINATION: Heart S1, S2 normal. No murmur or gallop heard. CHEST EXAMINATION: Lungs are clear to auscultation and precussion. No chest wall tenderness is noted on palpation or with deep breathing. ABDOMEN: Soft, nontender. Bowel sounds are heard. No organomegaly noted. EXTREMITIES: 2+ peripheral pulses with no evidence of peripheral edema and no calf tenderness noted. Right groin is soft, mild ecchymosis noted, no evidence of any hematoma. NEUROLOGIC patient is awake, alert and oriented 3 - Labs CBC & Chem 7: 06/22/20 03:46 06/22/20 03:46 Labs: Abnormal Lab Results - Last 24 Hours (Table) 06/22/20 06/22/20 06/22/20 Range/Units 12:40 17:00 20:13 POC Glucose (mg/dL) 135 H 133 H 143 H (75-99) mg/dL 06/23/20 06/23/20 Range/Units 07:04 11:41 POC Glucose (mg/dL) 141 H 108 H (75-99) mg/dL Assessment and Plan Assessment: #[address] elevation myocardial infarction, status post angioplasty and stenting of the LAD #2 diabetes #3 history of coronary artery disease with prior PCI #4 hyperlipidemia #5 hypertension #6 COVID Positive Plan: From supply chain consultant perspective, medications were reviewed and we will continue the same. Continue dual antiplatelet therapy along with Lipitor, Imdur, losartan and metoprolol. We anticipate the patient will be discharged home likely in the next 24-48 hours. The above dictated assessment and findings were discussed with signing ph ysician. The impression and plan of care have been directed as dictated. Rosalia Holguin, Nurse Practitioner, acting as scribe for signing physician.
[2020-06-23 16:52] LABS: Glucose,Whole Blood 118 mg/dL (75-99)
[2020-06-23 20:20] LABS: Glucose,Whole Blood 168 mg/dL (75-99)
[2020-06-23] MEDS: ATORVASTATIN 80 MG TAB PO SCH (20:51)
[2020-06-23] MEDS: VENLAFAXINE HCL ER 150 MG CAP PO SCH (20:51)
--- NOTE | 2020-06-23 22:25 | P.PN ---
Subjective Progress Note Date: 06/23/20 Principal diagnosis: STEMI This patient was cared for during of federal and state declared state of emergency secondary to COVID 19. Ms. Vasquez is a 59-year-old female with history of hypertension, hyperlipidemia, recent COVID-19 infection admitted to the hospital for chest pain secondary to ST elevation [place]. Patient had emergent cardiac catheterization with PCI and stent placement in the LAD by cardiology yesterday. Today patient was seen and examined on the general medical floors. Patient is sitting up in a chair by the bedside and watching television. Patient denies having any chest pain or palpitations. No cough or difficulty in breathing. No swelling at the site of cardiac cath. On reviewing the vitals afebrile, normotensive, saturating at 97% on room air. On reviewing her labs from yesterday hemoglobin stable at 14 and electrolytes within normal limits. Active Medications Generic Name Dose Route Start Last Admin Trade Name Freq PRN Reason Stop Dose Admin Acetaminophen 650 mg 06/22/20 05:38 06/22/20 10:23 Acetaminophen Tab 325 Mg Tab PO 650 mg Q6HR PRN Administration Fever and/ or Pain Al Hydroxide/Mg Hydroxide 30 ml 06/21/20 20:09 Mag Hydrox/Al Hydrox/Simeth 30 Ml Cup PO Q4HR PRN Heartburn Ascorbic Acid 1,000 mg 06/23/20 09:00 06/23/20 08:21 Ascorbic Acid 500 Mg Tab PO 1,000 mg DAILY TERRY Administration Aspirin 81 mg 06/22/20 09:00 06/23/20 08:21 Aspirin 81 Mg PO 81 mg DAILY TERRY Administration Atorvastatin Calcium 80 mg 06/21/20 21:00 06/22/20 21:34 Atorvastatin 80 Mg Tab PO 80 mg HS TERRY Administration Atropine Sulfate 0.5 mg 06/21/20 20:09 Atropine Sulfate 0.1 Mg/Ml 10ml Syringe IV ONCE PRN Symptomatic Bradycardia Famotidine 20 mg 06/22/20 21:00 06/23/20 08:22 Famotidine 20 Mg/2 Ml Vial IV 20 mg Q12HR TERRY Administration Fenofibrate 160 mg 06/22/20 09:00 06/23/20 08:21 Fenofibrate 160 Mg Tab PO 160 mg DAILY TERRY Administration Heparin Sodium (Porcine) 5,000 unit 06/22/20 21:00 06/23/20 08:22 Heparin Sodium,Porcine 5,000 Unit/Ml 1 Ml Vial SQ 5,000 unit Q12HR TERRY Administration Insulin Aspart 0 unit 06/22/20 12:30 06/23/20 11:44 Insulin Aspart (Novolog) 100 Unit/Ml Vial SQ Not Given ACHS [facility] Protocol Isosorbide Mononitrate 30 mg 06/22/20 09:00 06/23/20 08:22 Isosorbide Mononitrate Er 30 Mg Tab.Er.24h PO 30 mg DAILY TERRY Administration Losartan Potassium 50 mg 06/22/20 09:00 06/23/20 08:22 Losartan 50 Mg Tab PO 50 mg DAILY TERRY Administration Metoprolol Tartrate 25 mg 06/21/20 21:00 06/23/20 08:21 Metoprolol Tartrate 25 Mg Tab PO 25 mg BID TERRY Administration Miscellaneous Information 1 each 06/21/20 20:09 Rx Info: Iv Contrast Was Given 1 Each Misc MISCELLANE 06/23/20 20:09 DAILY PRN Per Protocol Naloxone HCl 0.2 mg 06/21/20 18:40 Naloxone 0.4 Mg/Ml 1 Ml Vial IV Q2M PRN Opioid Reversal Nitroglycerin 0.4 mg 06/21/20 20:04 Nitroglycerin Sl Tabs 0.4 Mg Tab SUBLINGUAL Q5M PRN Chest Pain Nitroglycerin 0.4 mg 06/21/20 20:09 Nitroglycerin Sl Tabs 0.4 Mg Tab SUBLINGUAL Q5M PRN Chest Pain Non-Formulary Medication 1 mg 06/21/20 20:15 06/21/20 22:56 Semaglutide [Ozempic] SQ Not Given Q7D [facility] Prasugrel 10 mg 06/22/20 12:00 06/23/20 08:21 Prasugrel 10 Mg Tab PO 10 mg DAILY TERRY Administration Venlafaxine HCl 150 mg 06/21/20 21:00 06/22/20 21:43 Venlafaxine Hcl Er 150 Mg Cap PO 150 mg HS TERRY Administration Zinc Sulfate 220 mg 06/23/20 09:00 06/23/20 08:21 Zinc Sulfate 220 Mg Cap PO 220 mg DAILY TERRY Administration Zolpidem Tartrate 5 mg 06/21/20 20:09 Zolpidem 5 Mg Tab PO HS PRN Insomnia Objective - Vital Signs Vital signs: Vital Signs Temp 98.6 F 06/23/20 08:05 Pulse 87 06/23/20 08:05 Resp 18 06/23/20 08:05 BP 129/63 06/23/20 08:05 Pulse Ox 97 06/23/20 08:05 Intake & Output 06/22/20 06/23/20 06/23/20 18:59 06:59 18:59 Intake Total 180 Output Total 1450 400 Balance -1450 -400 180 Weight 89.2 kg 81.9 kg Intake: Oral 180 Output: Urine 1450 400 Other: Voiding Method Toilet # Voids 0 1 1 - Exam PHYSICAL EXAMINATION: Patient is sitting in achair at bed side comfortably, no acute distress, awake alert and oriented. HEENT: Normocephalic. Neck is supple. Pupils reactive. No pallor or Icterus CHEST EXAMINATION: Trachea is central. Symmetrical expansion. Lung gutierres clear to auscultation and percussion. CARDIAC: Normal S1, S2 with no gallops. No murmurs ABDOMEN: Soft. Bowel sounds normal. No organomegaly. No abdominal bruits. Extremities: reveal no edema. No clubbing or cyanosis Neurologically : awake, alert, oriented x3 with well-coordinated movements. No focal deficits noted Skin: No rash or skin lesions. Psychiatric: Normal mood and effect Musculoskeletal: No joint swelling or deformity. Normal range of motion. - Labs CBC & Chem 7: 06/22/20 03:46 06/22/20 03:46 Labs: Abnormal Lab Results - Last 24 Hours (Table) 06/22/20 06/22/20 06/23/20 Range/Units 17:00 20:13 07:04 POC Glucose (mg/dL) 133 H 143 H 141 H (75-99) mg/dL 06/23/20 Range/Units 11:41 POC Glucose (mg/dL) 108 H (75-99) mg/dL Assessment and Plan Assessment: ASSESSMENT Acute STEMI status post PCI and stent placement of the LAD Covid 19 viral infection, no respiratory or GI symptoms Asymptomatic bacteriuria Type 2 diabetes mellitus Hypertriglyceridemia Hyperlipidemia Hypertension History of coronary artery disease Obesity Plan: Patient is status post stenting of LAD postop day # 2. Continue with dual antiplatelet therapy, beta-baldemar, ARB, statin. Patient's hemoglobin A1c came back at 6.5. Continue with the rest of her current medication regimen. Continue with GI DVT prophylaxis possible discharge in the next 24 to 48 hours.
[2020-06-24 05:08] VITALS: RESP 18
[2020-06-24 06:06] LABS: Glucose,Whole Blood 127 mg/dL (75-99)
[2020-06-24] MEDS: INSULIN ASPART (NovoLOG) 100 UNIT/ML VIAL SQ SCH ×3 (06:09→17:28)
[2020-06-24] MEDS: LOSARTAN 50 MG TAB PO SCH (08:17)
[2020-06-24] MEDS: HEPARIN SODIUM,PORCINE 5,000 UNIT/ML 1 ML VIAL SQ SCH (08:17)
[2020-06-24] MEDS: ASCORBIC ACID 500 MG TAB PO SCH (08:17)
[2020-06-24] MEDS: METOPROLOL TARTRATE 25 MG TAB PO SCH (08:17)
[2020-06-24] MEDS: FAMOTIDINE 20 MG/2 ML VIAL IV SCH (08:17)
[2020-06-24] MEDS: ASPIRIN 81 MG PO SCH (08:17)
[2020-06-24] MEDS: FENOFIBRATE 160 MG TAB PO SCH (08:17)
[2020-06-24] MEDS: ZINC SULFATE 220 MG CAP PO SCH (08:17)
[2020-06-24] MEDS: ISOSORBIDE MONONITRATE ER 30 MG TAB.ER.24H PO SCH (08:17)
[2020-06-24] MEDS: PRASUGREL 10 MG TAB PO SCH (08:17)
[2020-06-24 08:32] LABS: Basophils % (A) 1 %; Eosinophils # (A) 0.2 k/uL (0-0.7); Eosinophils % (A) 4 %; HCT 39.8 % (34.0-46.0); Lymphocytes % (A) 30 %; MCH 31.7 pg (25.0-35.0); MCHC 35.1 g/dL (31.0-37.0); MCV 90.5 fL (80.0-100.0); Mean Platelet Volume 7.3; Monocytes # (A) 0.3 k/uL (0-1.0); Monocytes % (A) 5 %; Neutrophils # (A) 4.1 k/uL (1.3-7.7); Neutrophils % (A) 60 %; Platelet Count 279 k/uL (150-450); RDW 13.7 % (11.5-15.5); WBC 6.8 k/uL (3.8-10.6)
[2020-06-24 08:44] LABS: African American GFR (CKD) >90 (>60 ml/min/1.73 sqM); Anion Gap 10 mmol/L; Blood Urea Nitrogen 23 mg/dL (7-17); Carbon Dioxide 24 mmol/L (22-30); Chloride 104 mmol/L (98-107); Glucose 171 mg/dL (74-99); Non-African American GFR(CKD) 86 (>60 ml/min/1.73 sqM); Potassium 4.8 mmol/L (3.5-5.1); Sodium 138 mmol/L (137-145)
[2020-06-24 12:20] LABS: Glucose,Whole Blood 119 mg/dL (75-99)
[2020-06-24 14:06] VITALS: BP 123/74
[2020-06-24 15:05] VITALS: PULSE 67; TEMP 98.5
--- NOTE | 2020-06-24 16:45 | P.DS ---
Providers Date of admission: 06/21/20 18:40 Expected date of discharge: 06/24/20 Attending physician: Yvon Berman Consults: 06/21/20 18:37 Consult Physician Stat Consulting Provider: [facility] Consult Reason/Comments: STEMI ACTIVATION COMPLETE Do you want consulting provider notified?: Yes 06/21/20 20:09 Consult Physician Routine Consulting Provider: [facility] Consult Reason/Comments: Post Interventional patient Do you want consulting provider notified?: Already Contacted Primary care physician: Jodie Meng Hospital Course: HPI - Ms. Vasquez is a pleasant 59 years old female with multiple medical problems also She has previously stent in the RCA. Also she has recent covid 19 infection with no evidence of respiratory or GI symptoms or compromise. She was recently discharged from [facility], where she was admitted for non-STEMI. Patient has been evaluated by her black oxide coating equipment tender Dr. Harman. Patient was found stable by cardiology team for discharge and to schedule outpatient stress test/coronary angiography to rule out obstructive CAD. However after discharge she went home and after 2 hours she developed chest pain. She describes the chest pain as central, sometimes radiating to the anterior neck associated with numbness in both hands, was about 10/10 in severity compared to 7/10 when she was at [facility] emergency room. Hospital course - Patient underwent emergent cardiac catheterization with PCI and stent placement in the left anterior descending artery with good angiographic results as per black oxide coating equipment tender . Echocardiogram with Doppler study done yesterday showed mildly impaired LV systolic function with ejection fraction between 45 and 50%, evidence of segmental wall motion abnormalities, trace to mild MR. patient has been started on dual antiplatelet therapy, statin, Imdur, losartan and beta baldemar. Patient tolerated the medications and her blood pressure was within normal limits. So patient was cleared by cardiology to have a follow-up with his PCP and with them in 1 week. Today the patient is sitting up in a chair by the bedside is to be no acute distress. Patient states that she is straight to go home. She has no active complaints. Vital Signs - 8 hr 06/24/20 06/24/20 11:45 13:05 Temperature 98.5 F 98.5 F Pulse Rate [ 67 67 Pulse Oximetery ] Respiratory 18 18 Rate Blood Pressure 123/74 123/74 [Right Arm] O2 Sat by Pulse 94 L 94 L Oximetry DISCHARGE DIAGNOSES Acute STEMI status post PCI and stent placement of the LAD Covid 19 viral infection, no respiratory or GI symptoms Asymptomatic bacteriuria Type 2 diabetes mellitus Hypertriglyceridemia Hyperlipidemia Hypertension History of coronary artery disease Obesity Follow up - discussed at length about being compliant with dual antiplatelet therapy and her discharge medications. She is advised to follow up with her PCP Dr. Jodie Meng in 2-3 days and cardiology within 1 week time. Patient Condition at Discharge: Serious Plan - Discharge Summary New Discharge Prescriptions: New Prasugrel [Effient] 10 mg PO DAILY #30 tab Atorvastatin [Lipitor] 80 mg PO HS #90 tab Continue gemfibroziL [Lopid] 600 mg PO BID Metoprolol Tartrate [Lopressor] 25 mg PO BID #60 tab Nitroglycerin Sl Tabs [Nitrostat] 0.4 mg SUBLINGUAL Q5M PRN #25 tab PRN Reason: Chest Pain metFORMIN HCL 1,000 mg PO HS Semaglutide [Ozempic] 1 mg SQ TU Losartan [Cozaar] 50 mg PO DAILY Isosorbide Mononitrate ER [Imdur] 30 mg PO DAILY Aspirin 81 mg PO DAILY Venlafaxine HCl ER [Effexor XR] 150 mg PO HS Discontinued Atorvastatin [Lipitor] 40 mg PO HS Discharge Medication List gemfibroziL [Lopid] 600 mg PO BID 11/03/15 [History] Metoprolol Tartrate [Lopressor] 25 mg PO BID #60 tab 11/06/15 [Rx] Nitroglycerin Sl Tabs [Nitrostat] 0.4 mg SUBLINGUAL Q5M PRN #25 tab 11/06/15 [Rx] Aspirin 81 mg PO DAILY 06/21/20 [History] Isosorbide Mononitrate ER [Imdur] 30 mg PO DAILY 06/21/20 [History] Losartan [Cozaar] 50 mg PO DAILY 06/21/20 [History] Semaglutide [Ozempic] 1 mg SQ TU 06/21/20 [History] Venlafaxine HCl ER [Effexor XR] 150 mg PO HS 06/21/20 [History] metFORMIN HCL 1,000 mg PO HS 06/21/20 [History] Atorvastatin [Lipitor] 80 mg PO HS #90 tab 06/24/20 [Rx] Prasugrel [Effient] 10 mg PO DAILY #30 tab 06/24/20 [Rx] Follow up Appointment(s)/Referral(s): Jodie Meng MD [Primary Care Provider] - 1-2 days Merrill Harman MD [STAFF PHYSICIAN] - 10 Days Discharge Disposition: HOME SELF-CARE
[2020-06-24 16:57] LABS: Glucose,Whole Blood 125 mg/dL (75-99)
--- NOTE | 2020-06-24 17:54 | PN ---
PROGRESS NOTE Jany is a 59-year-old lady with known coronary artery disease status post prior angioplasty of right coronary artery, who was recently admitted to the hospital with COVID infection. Had an episode of chest discomfort that resolved and the plan on her was to treat her with medical therapy and consider an outpatient stress test. She came back to the hospital with an acute anterior wall myocardial infarction and underwent emergent cardiac catheterization and angioplasty of a totally occluded LAD. The right coronary artery shows an intermediate in-stent restenosis. Circumflex coronary artery was free of disease. The patient has done well since the angioplasty. Does not have any symptoms. Ambulating without any issues. PHYSICAL EXAMINATION: Rate is 64 beats per minute. Blood pressure is 112/72, respiratory rate is 18. O2 saturation is 96% on room air. She is afebrile. LABS: Show a hemoglobin of 14, platelet count is 279, potassium is 4.8, creatinine is 0.7. Echocardiogram on this admission revealed an ejection fraction of 45-50 percent. MEDICATIONS: Include aspirin, Lipitor 80 mg daily, Lofibra, Imdur 30 mg daily, Cozaar 50 mg daily, Lopressor 25 b.i.d. and Effient 10 mg daily. ASSESSMENT: 1. Acute anterior wall myocardial infarction. 2. COVID infection. PLAN: Patient will continue with the current medical therapy. Discharged home today. She will be followed up in the office in 2 weeks. She will undergo a low-level stress test in 4 weeks time. She will return to work in 4 weeks. MMODL / IJN: [id number] /
== END 2020-06-24 17:50 | disposition home or self-care (01) | DRG 246 ==
LOC: EC 18:29 → 2SICU 18:40 → 3SCARD 06-22 20:03
PROVIDERS: ADMIT Hospitalist; ATTEND Hospitalist
PROC: 4A023N7 Measurement of Cardiac Sampling and Pressure, Left Heart, Percutaneous Approach (ICD-10-PCS; principal; 2020-06-21 19:07)
PROC: 027034Z Dilation of Coronary Artery, One Artery with Drug-eluting Intraluminal Device, Percutaneous Approach (ICD-10-PCS; principal; 2020-06-21 19:07)
PROC: B2111ZZ Fluoroscopy of Multiple Coronary Arteries using Low Osmolar Contrast (ICD-10-PCS; principal; 2020-06-21 19:07)
DX: I22.0 Subsequent ST elevation (STEMI) myocardial infarction of anterior wall (principal); U07.1 COVID-19; T82.855A Stenosis of coronary artery stent, initial encounter; I21.4 Non-ST elevation (NSTEMI) myocardial infarction; E11.9 Type 2 diabetes mellitus without complications; J44.9 Chronic obstructive pulmonary disease, unspecified; I10 Essential (primary) hypertension; E78.5 Hyperlipidemia, unspecified; K21.9 Gastro-esophageal reflux disease without esophagitis; E78.1 Pure hyperglyceridemia; I25.10 Atherosclerotic heart disease of native coronary artery without angina pectoris; Y83.1 Surgical operation with implant of artificial internal device as the cause of abnormal reaction of the patient, or of later complication, without mention of misadventure at the time of the procedure; G47.00 Insomnia, unspecified; E66.9 Obesity, unspecified; Z68.37 Body mass index [BMI] 37.0-37.9, adult; I25.2 Old myocardial infarction; Z90.710 Acquired absence of both cervix and uterus; Z90.49 Acquired absence of other specified parts of digestive tract; Z98.890 Other specified postprocedural states; Z98.891 History of uterine scar from previous surgery; Z95.5 Presence of coronary angioplasty implant and graft; Z91.030 Bee allergy status; Z91.048 Other nonmedicinal substance allergy status; Z79.899 Other long term (current) drug therapy; Z79.82 Long term (current) use of aspirin; Z79.84 Long term (current) use of oral hypoglycemic drugs; Z79.02 Long term (current) use of antithrombotics/antiplatelets; Z82.49 Family history of ischemic heart disease and other diseases of the circulatory system; Z90.89 Acquired absence of other organs; Z86.19 Personal history of other infectious and parasitic diseases
CPT/HCPCS: 36415; 71045; 80048; 80053; 83036; 84484; 85025; 85610; 85730; 93005; 93306; 93458; 96374; 96375; 99291

== ENCOUNTER → 2020-07-16 | Outpatient (CLI) | payer BC ==
--- NOTE | 2020-07-17 09:46 | MM ---
Reason for exam: screening (asymptomatic). Last mammogram was performed 2 years and 4 months ago. History: Patient is postmenopausal. Family history of breast cancer in maternal aunt at age 70. Benign US biopsy breast VAD LT of the left breast, June 27, 2015. Benign left mammotome panel of the left breast, April 25, 2011. Took hormonal contraceptives for 6 months. Physical Findings: A clinical breast exam by your physician is recommended on an annual basis and results should be correlated with mammographic findings. MG 3D Screening Mammo W/Cad Bilateral CC and MLO view(s) were taken. Prior study comparison: March 25, 2018, left breast MG 3d diag mammo w/cad LT. September 03, 2017, left breast MG work up mamm w CAD LT. The breast tissue is heterogeneously dense. This may lower the sensitivity of mammography. Previous mammotome biopsy in the left breast x 2. There is no discrete abnormality. ASSESSMENT: Benign, BI-RAD 2 RECOMMENDATION: Routine screening mammogram of both breasts in 1 year.
== END | disposition home or self-care (01) ==
LOC: RADMAMWWP 11:36
PROVIDERS: ATTEND Internal Medicine
DX: Z12.31 Encounter for screening mammogram for malignant neoplasm of breast (principal)
CPT/HCPCS: 77063; 77067

== ENCOUNTER 2022-07-18 05:52 | Day surgery (SDC) | payer BC ==
[~2022-07-18 05:52] MED LIST: LACTATED RINGERS 1,000 ML IV SCH
[2022-07-18 06:30] VITALS: RESP 16; TEMP 97.6
[2022-07-18 06:43] LABS: Glucose,Whole Blood 156 mg/dL (70-110)
[2022-07-18] MEDS ORDERED: PROPOFOL 10 MG/ML 20 ML VIAL IV ONE (07:02)
[2022-07-18] MEDS ORDERED: LIDOCAINE 2% INJ 20 MG/ML (2 ML VIAL) ONE (07:02)
--- NOTE | 2022-07-18 07:24 | P.PCN ---
Date of Procedure: 07/18/22 Procedure(s) Performed: Brief history: Patient is a pleasant 61-year-old white female scheduled for an elective upper endoscopy as well as colonoscopy as a part of evaluation of GERD and screening for colon cancer. Procedure performed: Esophagogastroduodenoscopy with biopsy Colonoscopy Preoperative diagnosis: GERD Screening for colon cancer Anesthesia: MAC Procedure: After informed consent was obtained from the patient was brought into the endoscopy unit and IV sedation was administered by anesthesia under continuous monitoring. Initially upper endoscopy was done. The Olympus GF 160 video endoscope was inserted inserted into the mouth and esophagus intubated without any difficulty and was gradually advanced into the stomach and duodenum and carefully examined. The bulb and second part of the duodenum appeared normal. The scope was then withdrawn into the stomach adequately insufflated with air and upon careful examination the antrum had mild gastritis and biopsies were done from this area. Mucosa of the body, cardia and fundus appeared normal. The scope was then withdrawn into the esophagus. The GE junction was located at 40 cm to the incisors. It appeared regular with 2 superficial erosions consistent with LA grade A reflux esophagitis. Rest of the esophagus appeared normal. Patient tolerated the procedure well. At this time the patient continued to remain sedation. Initial digital rectal examination was normal. Olympus CF 160 video colonoscope was then inserted into the rectum and gradually advanced to the cecum without any difficulty. Careful examination was performed as the scope was gradually being withdrawn. The prep was excellent. The cecum, ascending colon, transverse colon, descending colon, sigmoid colon and rectum appeared normal. Retroflexion was performed in the rectum and no lesions were noted. Patient tolerated the procedure well. Impression: 1. Upper endoscopy revealed mild antral gastritis and LA grade A reflux esophagitis 2. Colonoscopy revealed scattered similar diverticulosis but no evidence of colorectal neoplasia Recommendations: Findings of this examination were discussed with the patient as well as a family. She was advised to follow with the biopsy results. In the meantime I suggested that she increase the Pepcid to 20 mg twice daily and follow antireflux measures. Recommend repeat screening colonoscopy in 10 years
[2022-07-18 08:01] VITALS: BP 113/66; PULSE 63
== END 2022-07-18 08:17 | disposition home or self-care (01) ==
LOC: ORWHC2ENDO 05:52
PROVIDERS: ATTEND Internal Medicine Gastroenterology
DX: Z12.11 Encounter for screening for malignant neoplasm of colon (principal); K57.30 Diverticulosis of large intestine without perforation or abscess without bleeding; K29.50 Unspecified chronic gastritis without bleeding; K21.00 Gastro-esophageal reflux disease with esophagitis, without bleeding; Z91.040 Latex allergy status; Z91.048 Other nonmedicinal substance allergy status; Z91.030 Bee allergy status; I25.10 Atherosclerotic heart disease of native coronary artery without angina pectoris; I10 Essential (primary) hypertension; E78.5 Hyperlipidemia, unspecified; Z95.5 Presence of coronary angioplasty implant and graft; G47.33 Obstructive sleep apnea (adult) (pediatric); Z99.89 Dependence on other enabling machines and devices; E11.9 Type 2 diabetes mellitus without complications; Z79.01 Long term (current) use of anticoagulants; Z79.02 Long term (current) use of antithrombotics/antiplatelets; Z79.82 Long term (current) use of aspirin; Z79.52 Long term (current) use of systemic steroids; Z79.891 Long term (current) use of opiate analgesic; Z79.899 Other long term (current) drug therapy; Z90.49 Acquired absence of other specified parts of digestive tract; Z98.890 Other specified postprocedural states
CPT/HCPCS: 88305; 45378; 43239; J2704; J2001

== ENCOUNTER → 2023-01-26 | Outpatient (CLI) | payer BC ==
--- NOTE | 2023-01-27 19:58 | MM ---
Reason for Exam: Screening (asymptomatic). Last mammogram was performed 2 year(s) and 7 month(s) ago. Patient History: Menarche at age 13. First Full-Term at age 25. Right ovary removed at age 38. Hysterectomy at age 38. Postmenopausal. Patient has history of breast feeding. Hormonal Contraceptives for 6 months. 06/27/2015, Benign Core Biopsy on the left side. 04/25/2011, Benign Core Biopsy on the left side. Maternal aunt had breast cancer, age 70. Risk Values: Carissa 5 year model risk: 2.1%. NCI Lifetime model risk: 10.6%. Prior Study Comparison: 09/03/2017 Left Diagnostic Mammogram, [facility]. 03/25/2018 Left Diagnostic Mammogram, [facility]. 07/16/2020 Bilateral Screening Mammogram, [facility]. Tissue Density: There are scattered fibroglandular densities. Findings: Analyzed By CAD. 2 mcg medial left breast from prior biopsies. A few, typically benign punctate calcifications developed in the lower inner quadrant of the left breast. There is no suspicious group of microcalcifications or new suspicious mass in either breast. Overall Assessment: Benign, BI-RAD 2 Management: Screening Mammogram of both breasts in 1 year. . Patient should continue monthly self-breast exams. A clinical breast exam by your physician is recommended on an annual basis. This exam should not preclude additional follow-up of suspicious palpable abnormalities. Note on Carissa scores and lifetime risk: 1. A Carissa score greater than 3% is considered moderate risk. If this is the case, consider specialist referral to assess eligibility for a risk reducing agent. 2. If overall lifetime risk for the development of breast cancer is 20% or higher, the patient may qualify for future screening with alternating mammogram and breast MRI. Electronically signed and approved by: Raoul Márquez M.D. Radiologist
== END | disposition home or self-care (01) ==
LOC: RADMAMWWP 16:33
PROVIDERS: ATTEND Internal Medicine
DX: Z12.31 Encounter for screening mammogram for malignant neoplasm of breast (principal); Z80.3 Family history of malignant neoplasm of breast; Z78.0 Asymptomatic menopausal state
CPT/HCPCS: 77063; 77067

== ENCOUNTER → 2023-11-18 | Outpatient (CLI) | payer BC ==
[2023-11-18 10:36] LABS: African American GFR (CKD) >90 (>60 ml/min/1.73 sqM); Blood Urea Nitrogen 19 mg/dL (7-17); Non-African American GFR(CKD) >90 (>60 ml/min/1.73 sqM)
--- NOTE | 2023-11-18 12:44 | CT ---
EXAMINATION TYPE: CT abdomen w con DATE OF EXAM: 11/18/2023 COMPARISON: 04/03/2017 INDICATION: LUQ abdominal pain. DLP: 1065.4 mGycm, Automated exposure control for dose reduction was used. CONTRAST: 100 mL of Isovue 300. Study performed with Oral Contrast TECHNIQUE: Axial images were obtained from above the diaphragm to the iliac crests in the axial plane at 5 mm thick sections. Reconstructed images are reviewed on the computer in the coronal plane. FINDINGS: Limited CT sections are obtained the lung bases. The lung bases are clear. CT ABDOMEN: Liver: Normal Spleen: May be a tiny cyst within the posterior spleen measuring 0.7 cm. Pancreas: Normal Adrenal glands: Left adrenal gland has mild thickening or nodule measuring 1.3 cm. Right adrenal glan d appears normal. Gallbladder: Surgically absent Kidneys: No masses are evident. No hydronephrosis is present. On delayed images cortical renal cyst s are identified bilaterally Delayed images were obtained through the kidneys, which remain unremark able. Aorta: Vascular calcification is within the aorta. Inferior vena cava: Normal. Loops of bowel within the abdomen and pelvis are normal. There are loops of bowel which are incom pletely distended or lack oral contrast limiting their evaluation. IMPRESSION: 1. No suspicious abnormality to account for left upper quadrant pain
== END | disposition home or self-care (01) ==
LOC: RADCTMAIN 09:51
PROVIDERS: ATTEND Internal Medicine
DX: R10.12 Left upper quadrant pain (principal)
CPT/HCPCS: 82565; 84520; 74160; 36415; Q9967

== ENCOUNTER → 2024-02-16 | Outpatient (CLI) | payer BC ==
--- NOTE | 2024-02-17 09:24 | BD ---
EXAMINATION TYPE: Axial Bone Density DATE OF EXAM: 02/16/2024 CLINICAL HISTORY: 63 years old Female. ICD-10 CODE: N95.8 OTHER SPECIFIED MENOPAUSAL AND PERIMENOPAU JERONIMO DISORDER Height: 5 ft 1 in Weight: 170 FRAX RISK QUESTIONS: Alcohol (3 or more units per day): no Family History (Parent hip fracture): no Glucocorticoids (More than 3mos): no (Ex: prednisone, prednisolone, methylprednisolone, dexamethasone, and hydrocortisone). History of Fracture in Adulthood: no Secondary Osteoporosis: 1. Type 1 Diabetes: no 2. Hyperthyroidism: no 3. Menopause before 45: no 4. Malnutrition: no 5. Chronic liver disease: no Rheumatoid Arthritis: no Current Tobacco Use: no RISK FACTORS HISTORY OF: Surgery to Spine/Hip(right/left)/Wrist (right/left): no MEDICATIONS: Thyroid Medications: none Osteoporosis Medications: none EXAM MEASUREMENTS: Bone mineral densitometry was performed using the [employer] System. Bone mineral density as measured about the Lumbar spine is: ----- L1-L4(G/cm2): 1.257 T Score Values are as follows: ----- L1: -0.6 ----- L2: -0.4 ----- L3: 1.3 ----- L4: 1.2 ----- L1-L4: 0.6 Z Score Values are as follows: ----- L1: 0.3 ----- L2: 0.5 ----- L3: 2.2 ----- L4: 2.1 ----- L1-L4: 1.5 baseline Bone mineral density about the R hip (g/cm2): 0.973 Bone mineral density about the L hip (g/cm2): 0.961 T Score values are as follows: -----R Neck: -0.5 -----L Neck: -0.6 -----R Total: 0.4 -----L Total: 0.5 Z Score values are as follows: -----R Neck: 0.6 -----L Neck: 0.5 -----R Total: 1.1 -----L Total: 1.2 baseline FRAX%s: The graph provided illustrates a 6.5 % chance for a major osteoporotic fx and a 0.2 % chance for the hips probability for fx in 10 years time. IMPRESSION: Normal (Values between +1 and -1 indicate normal bone mass). Consider repeating this study in 5 year s or sooner if there is some new clinical indication. NOTE: T-SCORE=SD OF THE YOUNG ADULT MEAN.
--- NOTE | 2024-02-18 12:11 | MM ---
Reason for Exam: Screening (asymptomatic). Last screening mammogram was performed 12 month(s) ago. Patient History: Menarche at age 13. First Full-Term at age 25. Right ovary removed at age 38. Hysterectomy at age 38. Postmenopausal. Patient has history of breast feeding. Hormonal Contraceptives for 6 months. 06/27/2015, Benign Core Biopsy on the left side. 04/25/2011, Benign Core Biopsy on the left side. Maternal aunt had breast cancer, age 70. Risk Values: Carissa 5 year model risk: 2.2%. NCI Lifetime model risk: 10.3%. Prior Study Comparison: 03/25/2018 Left Diagnostic Mammogram, [facility]. 07/16/2020 Bilateral Screening Mammogram, [facility]. 01/26/2023 Bilateral MG 3D screening mammo w/cad, [facility]. Tissue Density: There are scattered areas of fibroglandular density. Findings: Analyzed By CAD. There is no suspicious group of microcalcifications or new suspicious mass in either breast. Overall Assessment: Negative, BI-RAD 1 Management: Screening Mammogram of both breasts in 1 year. . Patient should continue monthly self-breast exams. A clinical breast exam by your physician is recommended on an annual basis. This exam should not preclude additional follow-up of suspicious palpable abnormalities. Note on Carissa scores and lifetime risk: 1. A Carissa score greater than 3% is considered moderate risk. If this is the case, consider specialist referral to assess eligibility for a risk reducing agent. 2. If overall lifetime risk for the development of breast cancer is 20% or higher, the patient may qualify for future screening with alternating mammogram and breast MRI. Electronically signed and approved by: Rafita Galan M.D. Radiologis
== END | disposition home or self-care (01) ==
LOC: RADMAMWWP 14:41
PROVIDERS: ATTEND Internal Medicine
DX: Z12.31 Encounter for screening mammogram for malignant neoplasm of breast (principal); N95.8 Other specified menopausal and perimenopausal disorders; R92.323 Mammographic fibroglandular density, bilateral breasts; Z78.0 Asymptomatic menopausal state; Z80.3 Family history of malignant neoplasm of breast
CPT/HCPCS: 77063; 77067; 77080